=== PATIENT | male | born 1990 | race African-American/Black ===

== ENCOUNTER 2020-05-20 08:33 | Outpatient (CLI) | payer OTHER, SELFPAY | END 2020-05-20 08:34 | disposition home or self-care (01) | LOC: ANHAUDIO 08:36 | PROVIDERS: Visit Provider Otolaryngology | DX: H90.42 Sensorineural hearing loss, unilateral, left ear, with unrestricted hearing on the contralateral side (principal) | CPT/HCPCS: 92557; 92567 ==

== ENCOUNTER 2020-06-30 11:01 | Outpatient (RCR) | payer OTHER, SELFPAY | END 2020-06-30 23:59 | disposition home or self-care (01) | LOC: ANHAUDIO 11:01 | PROVIDERS: Visit Provider Otolaryngology | DX: Z46.1 Encounter for fitting and adjustment of hearing aid (principal) | CPT/HCPCS: V5160; V5261 ==